=== PATIENT | female | born 1960 | race Caucasian/White ===

== ENCOUNTER 2024-08-29 11:04 | Day surgery (SDC) | payer OTHER ==
[2024-08-29 11:43] LABS: BASO % 0.3 % (0-2.0); EOS % 3.8 % (0-4.5); HEMATOCRIT 38.2 % (32.4-45.2); HEMOGLOBIN 12.7 GM/dL (10.7-15.3); LYMPH % 14.2 % (8-40); MCH 27.5 pg (25.7-33.7); MCHC 33.3 g/dl (32.0-36.0); MEAN CELL VOLUME 82.4 fl (80-96); MEAN PLT VOLUME 8.5 fl (7.5-11.1); MONO % 4.5 % (3.8-10.2); NEUT % 77.2 % (42.8-82.8); PLATELET COUNT 232 10^3/uL (134-434); RBC 4.63 M/mm3 (3.60-5.2); WHITE BLOOD COUNT 8.4 K/mm3 (4.0-10.0)
[2024-08-29 11:58] LABS: CHLORIDE 106 mmol/L (98-107); POTASSIUM 4.1 mmol/L (3.5-5.1); SODIUM 141 mmol/L (136-145)
[2024-08-29 12:02] LABS: CALCIUM 10.1 mg/dL (8.5-10.1)
[2024-08-29 12:03] LABS: ALBUMIN 3.8 g/dl (3.4-5.0); AMYLASE 24 U/L (25-115); ANION GAP 7 mmol/L (4-13); BLOOD UREA NITROGEN 31.5 mg/dL (7-18); CO2 27 mmol/L (21-32); GLUCOSE,RANDOM 95 mg/dL (74-106); MAGNESIUM 1.9 mg/dL (1.8-2.4)
[2024-08-29 12:05] LABS: SGOT/AST 10 U/L (15-37); SGPT/ALT 16 U/L (13-61)
[2024-08-29 12:07] LABS: BILIRUBIN,TOTAL 1.2 mg/dL (0.2-1); TOT PROT 7.5 g/dl (6.4-8.2)
[2024-08-29 12:08] LABS: ALK PHOS 91 U/L (45-117)
[2024-08-29 12:30] LABS: ANISOCYTOSIS 1+; MACROCYTOSIS 0
[2024-08-29] MEDS: PALONOSETRON HCL 0.25 MG/5 ML VIAL IVPUSH ONE (12:55)
[2024-08-29] MEDS: DEXAMETHASONE SODIUM PHOSPHATE 20 MG, DIPHENHYDRAMINE 50 MG in SODIUM CHLORIDE 100 ML IVPB ONE (12:59)
[2024-08-29] MEDS: FOSAPREPITANT DIMEGLUMINE 150 MG in SODIUM CHLORIDE 145 ML IVPB ONE (14:15)
[2024-08-29] MEDS: FAMOTIDINE 20 MG/50 ML IVPB 20 MG/50 ML MG IVPB ONE ×2 (14:50→16:30)
[2024-08-29 14:56] VITALS: RESP 20; TEMP 98.4
[2024-08-29] MEDS: DEXAMETHASONE SODIUM PHOSPHATE IVPB ONE (15:20)
[2024-08-29] MEDS: SODIUM CHLORIDE IVPB ONE ×3 (15:20→18:56)
[2024-08-29] MEDS: PACLITAXEL IVPB ONE (15:52)
[2024-08-29] MEDS: DEXAMETHASONE SOD PHOSPHATE 10 MG/1 ML VIAL IVPUSH ONE (16:30)
[2024-08-29 16:50] LABS: EOS % 0.2 % (0-4.5); HEMATOCRIT 44.1 % (32.4-45.2); HEMOGLOBIN 14.4 GM/dL (10.7-15.3); LYMPH % 29.7 % (8-40); MCHC 32.6 g/dl (32.0-36.0); MEAN CELL VOLUME 82.6 fl (80-96); MEAN PLT VOLUME 7.9 fl (7.5-11.1); MONO % 1.5 % (3.8-10.2); NEUT % 67.6 % (42.8-82.8); PLATELET COUNT 342 10^3/uL (134-434); RBC 5.34 M/mm3 (3.60-5.2); RDW 23.4 % (11.6-15.6); WHITE BLOOD COUNT 8.5 K/mm3 (4.0-10.0)
[2024-08-29 17:10] LABS: PLATELET ESTIMATE INCREASED
[2024-08-29 17:26] LABS: POTASSIUM 4.6 mmol/L (3.5-5.1)
[2024-08-29 17:29] LABS: ALBUMIN 3.3 g/dl (3.4-5.0); BLOOD UREA NITROGEN 30.4 mg/dL (7-18); CALCIUM 9.7 mg/dL (8.5-10.1)
[2024-08-29 17:32] LABS: CREATININE 1.2 mg/dL (0.55-1.3)
[2024-08-29 17:34] LABS: TOT PROT 6.8 g/dl (6.4-8.2)
[2024-08-29 18:07] VITALS: BP 152/65; PULSE 87
[2024-08-29] MEDS: CARBOPLATIN IVPB ONE (18:56)
== END 2024-08-29 16:50 | disposition home or self-care (01) ==
LOC: JONCCHEMO 11:04 → J7W 11:04 → JONCCHEMO 16:50
PROVIDERS: ATTEND Internal Medicine Hematology & Oncology
DX: Z51.11 Encounter for antineoplastic chemotherapy (principal); C54.1 Malignant neoplasm of endometrium; C77.5 Secondary and unspecified malignant neoplasm of intrapelvic lymph nodes
CPT/HCPCS: 36415; 80053; 82150; 82533; 82962; 83690; 83735; 84100; 84439; 84443; 85025; 96367; 96413; J1100; J1453

== ENCOUNTER 2024-08-29 16:46 | Emergency (ER) | payer OTHER ==
[~2024-08-29 16:46] MED LIST: DEXAMETHASONE SOD PHOSPHATE 10 MG/1 ML VIAL IVPUSH ONE; FAMOTIDINE 20 MG/50 ML IVPB 20 MG/50 ML MG IVPB ONE
[2024-08-29 17:02] VITALS: BMI 53.4
[2024-08-29 17:23] LABS: ARTERIAL BLD GAS O2 SATURATION 96.3 % (95-98); ARTERIAL BLOOD GAS BASE EXCESS -4.8 mmol/L (-2-2); ARTERIAL BLOOD GAS PO2 88.8 mmHg (80-100); ARTERIAL BLOOD GAS pH 7.338 (7.350-7.450)
[2024-08-29] MEDS: LACTATED RINGERS SOLUTION 1000 ML INFUS.BAG IV ONE (17:27)
[2024-08-29] MEDS ORDERED: methylPREDNISolone NA SUCC 125 MG/2 ML VIAL ONE ×2 (17:28→17:30)
[2024-08-29] MEDS ORDERED: FAMOTIDINE 10 MG/ML VIAL IVPB ONE (17:29)
[2024-08-29] MEDS: methylPREDNISolone NA SUCC 125 MG/2 ML VIAL IVPUSH ONE (17:35)
[2024-08-29] MEDS: FAMOTIDINE 20 MG/50 ML IVPB 20 MG/50 ML MG IVPB ONE (17:35)
[2024-08-29] MEDS: ACETAMINOPHEN 1000 MG/100 ML BAG IVPB ONE (17:39)
[2024-08-29] MEDS ORDERED: ACETAMINOPHEN INJECTION 100 ML ONE (17:42)
[2024-08-29 22:19] VITALS: BP 128/79; PULSE 83; RESP 18; TEMP 97.5
== END 2024-08-29 22:19 | disposition home or self-care (01) ==
LOC: JER 16:46
DX: R22.0 Localized swelling, mass and lump, head (principal); T45.1X5A Adverse effect of antineoplastic and immunosuppressive drugs, initial encounter
CPT/HCPCS: 36600; 82803; 82962; 93005; 93010; 99284-25; J0131

== ENCOUNTER 2024-09-10 06:30 | Day surgery (SDC) | payer OTHER ==
[2024-09-07 08:56] VITALS: BMI 52.8
[2024-09-10 08:30] LABS: BASO % 0.6 % (0-2.0); EOS % 3.3 % (0-4.5); HEMATOCRIT 38.9 % (32.4-45.2); HEMOGLOBIN 12.8 GM/dL (10.7-15.3); LYMPH % 14.9 % (8-40); MCH 27.6 pg (25.7-33.7); MCHC 32.9 g/dl (32.0-36.0); MEAN CELL VOLUME 83.9 fl (80-96); MEAN PLT VOLUME 7.6 fl (7.5-11.1); MONO % 4.7 % (3.8-10.2); NEUT % 76.5 % (42.8-82.8); PLATELET COUNT 224 10^3/uL (134-434); RBC 4.63 M/mm3 (3.60-5.2); RDW 21.4 % (11.6-15.6); WHITE BLOOD COUNT 8.4 K/mm3 (4.0-10.0)
[2024-09-10 08:36] LABS: PROTHROMBIN TIME (PATIENT) 11.5 SEC (9.7-13.0)
[2024-09-10 09:00] LABS: ANISOCYTOSIS 1+; MACROCYTOSIS 1+
[2024-09-10] MEDS: SODIUM CHLORIDE 500 ML IV SCH (10:40)
[2024-09-10] MEDS ORDERED: FENTANYL CITRATE/PF 50 MCG/ML VIAL ONE (10:47)
[2024-09-10] MEDS ORDERED: MIDAZOLAM HCL 2 MG/2 ML SINGLE DOSE VIAL ONE (10:47)
[2024-09-10] MEDS: MIDAZOLAM HCL 2 MG/2 ML SINGLE DOSE VIAL IVPUSH ONE (10:58)
[2024-09-10] MEDS: FENTANYL CITRATE/PF 50 MCG/ML VIAL IVPUSH ONE (10:58)
[2024-09-10 13:30] VITALS: BP 130/58; PULSE 82; RESP 20; TEMP 98
== END 2024-09-10 13:47 | disposition home or self-care (01) ==
LOC: JRADIR 06:30
PROVIDERS: ATTEND Internal Medicine Hematology & Oncology
DX: Z51.11 Encounter for antineoplastic chemotherapy (principal); C54.1 Malignant neoplasm of endometrium
CPT/HCPCS: 36415; 36561; 85025; 85610

== ENCOUNTER 2024-09-12 10:14 | Day surgery (SDC) | payer OTHER ==
[2024-09-12] MEDS: SODIUM CHLORIDE 250 ML IV ONE (10:45)
[2024-09-12] MEDS: PEMBROLIZUMAB 200 MG in SODIUM CHLORIDE 50 ML IV ONE (11:00)
[2024-09-12 14:48] VITALS: RESP 18; TEMP 97.7
[2024-09-12 15:03] VITALS: BP 126/52; PULSE 54
[2024-09-12] MEDS ORDERED: PORTA CATH FLUSH 10 ML IVPUSH PRN (15:03)
== END 2024-09-12 12:15 | disposition home or self-care (01) ==
LOC: J7W 10:14 → JONCCHEMO 10:14
PROVIDERS: ATTEND Internal Medicine Hematology & Oncology
DX: Z51.11 Encounter for antineoplastic chemotherapy (principal); C54.1 Malignant neoplasm of endometrium
CPT/HCPCS: 96413; J9271

== ENCOUNTER 2024-10-03 10:12 | Day surgery (SDC) | payer OTHER ==
[2024-10-03] MEDS: PEMBROLIZUMAB 200 MG in SODIUM CHLORIDE 50 ML IV ONE (11:18)
[2024-10-03] MEDS: PORTA CATH FLUSH 10 ML IVPUSH PRN (12:00)
[2024-10-03 13:45] VITALS: BP 113/56; PULSE 53; RESP 20; TEMP 98.5
== END 2024-10-03 12:30 | disposition home or self-care (01) ==
LOC: JONCCHEMO 10:12 → J7W 10:17 → JONCCHEMO 12:30
PROVIDERS: ATTEND Internal Medicine Hematology & Oncology
DX: Z51.11 Encounter for antineoplastic chemotherapy (principal); C54.1 Malignant neoplasm of endometrium
CPT/HCPCS: 93005; 93010; 96413; J9271

== ENCOUNTER 2024-10-23 13:43 | Inpatient (IN) | payer OTHER ==
[2024-10-23 15:03] LABS: URINE APPEARANCE Clear; URINE BILIRUBIN Negative (NEGATIVE); URINE COLOR Yellow; URINE GLUCOSE (UA) 1+ (NEGATIVE); URINE KETONE Negative (NEGATIVE); URINE LEUK ESTERASE 1+ (NEGATIVE); URINE NITRITE Negative (NEGATIVE); URINE PROTEIN 1+ (NEGATIVE); URINE UROBILINOGEN 0.2 mg/dL (0.2-1.0)
[2024-10-23 15:05] LABS: HEMATOCRIT 32.3 % (32.4-45.2); HEMOGLOBIN 10.7 GM/dL (10.7-15.3); MCH 27.9 pg (25.7-33.7); MCHC 33.1 g/dl (32.0-36.0); MEAN CELL VOLUME 84.2 fl (80-96); MEAN PLT VOLUME 6.5 fl (7.5-11.1); PLATELET COUNT 402 10^3/uL (134-434); RBC 3.84 M/mm3 (3.60-5.2); RDW 15.2 % (11.6-15.6); WHITE BLOOD COUNT 13.8 K/mm3 (4.0-10.0)
[2024-10-23 15:09] LABS: EPI CELLS 24.8 /uL (0-25.1); HYALINE CASTS 0.54 /uL (0-3.1); URINE BACTERIA 910.9 /uL (0-1359); URINE RBC 40.7 /uL (0-23.9); URINE WBC 362.5 /uL (0-25.8)
[2024-10-23 15:24] LABS: CHLORIDE 102 mmol/L (98-107); POTASSIUM 4.3 mmol/L (3.5-5.1); SODIUM 137 mmol/L (136-145)
[2024-10-23 15:26] LABS: VENOUS BASE EXCESS -6.4 mmol/L (-2-2); VENOUS O2 SATURATION 59.6 % (70-80); VENOUS PH 7.349 (7.310-7.410)
[2024-10-23 15:26] LABS: ANION GAP 15 mmol/L (4-13); BLOOD UREA NITROGEN 109.9 mg/dL (7-18); CALCIUM 9.5 mg/dL (8.5-10.1); CO2 19 mmol/L (21-32); MAGNESIUM 1.8 mg/dL (1.8-2.4)
[2024-10-23 15:27] LABS: GLUCOSE,RANDOM 233 mg/dL (74-106)
[2024-10-23 15:29] LABS: SGOT/AST 10 U/L (15-37); SGPT/ALT 29 U/L (13-61)
[2024-10-23 15:31] LABS: BILIRUBIN,TOTAL 0.4 mg/dL (0.2-1); TOT PROT 7.6 g/dl (6.4-8.2)
[2024-10-23 15:32] LABS: ALK PHOS 196 U/L (45-117)
[2024-10-23 15:38] LABS: CREATININE 9.9 mg/dL (0.55-1.3)
[2024-10-23 16:10] LABS: ANISOCYTOSIS 0; HELMET CELLS 0; HOWELL-JOLLY BODIES 0; MACROCYTOSIS 0; OVALOCYTE 0; ROULEAU 0; SICKELED CELLS 0; TARGET CELLS 0; TEAR DROP CELLS 0; TOXIC GRANULATION 0
[2024-10-23 16:20] LABS: INR 1.16 (0.83-1.09)
[2024-10-23] MEDS: SODIUM CHLORIDE 1,000 ML IV STA (16:29)
[2024-10-23] MEDS: SODIUM CHLORIDE 1,000 ML IV SCH ×2 (18:11→20:02)
[2024-10-23 18:44] LABS: CHLORIDE 106 mmol/L (98-107); POTASSIUM 4.4 mmol/L (3.5-5.1); SODIUM 140 mmol/L (136-145)
[2024-10-23 18:47] LABS: ALBUMIN 2.8 g/dl (3.4-5.0); ANION GAP 14 mmol/L (4-13); CO2 20 mmol/L (21-32); GLUCOSE,RANDOM 138 mg/dL (74-106)
[2024-10-23 18:50] LABS: SGOT/AST 11 U/L (15-37); SGPT/ALT 25 U/L (13-61)
[2024-10-23 18:51] LABS: BILIRUBIN,TOTAL 0.3 mg/dL (0.2-1); TOT PROT 7.1 g/dl (6.4-8.2)
[2024-10-23 18:53] LABS: ALK PHOS 169 U/L (45-117)
[2024-10-23 18:55] LABS: BLOOD UREA NITROGEN 108.7 mg/dL (7-18); CREATININE 9.4 mg/dL (0.55-1.3)
[2024-10-23 21:33] LABS: PHOSPHOROUS 6.6 mg/dL (2.5-4.9)
[2024-10-23] MEDS ORDERED: ACETAMINOPHEN 325 MG TABLET (FP) PO SCH (22:00)
[2024-10-23] MEDS ORDERED: HEPARIN NA (PORCINE) 5,000 UNITS/ML 1ML VIAL ONE (22:06)
[2024-10-23] MEDS ORDERED: PANTOPRAZOLE SODIUM 40 MG/100 ML BAG IVPB ONE (22:06)
[2024-10-23] MEDS: HEPARIN NA (PORCINE) 5,000 UNITS/ML 1ML VIAL SQ SCH (22:22)
[2024-10-23] MEDS: PANTOPRAZOLE 40 MG TABLET PO SCH (22:22)
[2024-10-23] MEDS ORDERED: PANTOPRAZOLE 40 MG TABLET PO ONE (22:23)
[2024-10-24] MEDS: SODIUM CHLORIDE 1,000 ML IV SCH ×2 (00:45→16:48)
[2024-10-24] MEDS: INSULIN ASPART SLIDING SCALE (NOVOLOG) 1 VIAL SQ SCH (06:04)
[2024-10-24 07:51] LABS: HEMATOCRIT 29.6 % (32.4-45.2); HEMOGLOBIN 9.5 GM/dL (10.7-15.3); MCH 27.8 pg (25.7-33.7); MCHC 32.2 g/dl (32.0-36.0); MEAN CELL VOLUME 86.3 fl (80-96); MEAN PLT VOLUME 6.7 fl (7.5-11.1); PLATELET COUNT 338 10^3/uL (134-434); RBC 3.43 M/mm3 (3.60-5.2); RDW 15.5 % (11.6-15.6); WHITE BLOOD COUNT 13.6 K/mm3 (4.0-10.0)
[2024-10-24 07:58] LABS: CHLORIDE 106 mmol/L (98-107); POTASSIUM 4.6 mmol/L (3.5-5.1); SODIUM 139 mmol/L (136-145)
[2024-10-24 08:13] LABS: CALCIUM 9.1 mg/dL (8.5-10.1)
[2024-10-24 08:14] LABS: ALBUMIN 2.8 g/dl (3.4-5.0); ANION GAP 13 mmol/L (4-13); BLOOD UREA NITROGEN 101.8 mg/dL (7-18); CO2 19 mmol/L (21-32); GLUCOSE,RANDOM 153 mg/dL (74-106); MAGNESIUM 2.1 mg/dL (1.8-2.4)
[2024-10-24 08:16] LABS: PHOSPHOROUS 8.1 mg/dL (2.5-4.9)
[2024-10-24 08:17] LABS: SGOT/AST 8 U/L (15-37); SGPT/ALT 23 U/L (13-61)
[2024-10-24 08:18] LABS: BILIRUBIN,TOTAL 0.4 mg/dL (0.2-1); TOT PROT 6.8 g/dl (6.4-8.2)
[2024-10-24 08:19] LABS: ALK PHOS 152 U/L (45-117)
[2024-10-24 08:24] LABS: CREATININE 8.8 mg/dL (0.55-1.3)
[2024-10-24] MEDS: SEVELAMER CARBONATE 800 MG TAB (FP) PO SCH (09:19)
[2024-10-24] MEDS: FERROUS SO4 325 MG TABLET (FP) PO SCH (09:19)
[2024-10-24 09:42] LABS: ANISOCYTOSIS 0; HELMET CELLS 0; HOWELL-JOLLY BODIES 0; MACROCYTOSIS 0; OVALOCYTE 0; ROULEAU 0; SICKELED CELLS 0; TARGET CELLS 0; TEAR DROP CELLS 0; TOXIC GRANULATION 0
[2024-10-24 14:25] LABS: PH,URINE 5.5 (5.0-8.0); URINE APPEARANCE CLEAR; URINE BILIRUBIN NEGATIVE (NEGATIVE); URINE COLOR YELLOW; URINE GLUCOSE (UA) NEGATIVE (NEGATIVE); URINE KETONE NEGATIVE (NEGATIVE)
[2024-10-24 14:26] LABS: URINE LEUK ESTERASE NEGATIVE (NEGATIVE); URINE NITRITE NEGATIVE (NEGATIVE); URINE PROTEIN 1+ (NEGATIVE); URINE UROBILINOGEN 0.2 mg/dL (0.2-1.0)
[2024-10-24 14:28] LABS: EPI CELLS 31 /uL (0-25.1); HYALINE CASTS 0 /uL (0-3.1); URINE BACTERIA 1402 /uL (0-1359); URINE WBC 282 /uL (0-25.8)
[2024-10-24 14:31] LABS: URINE RBC 19.8 /uL (0-23.9)
[2024-10-25 00:56] LABS: HIV INTERPRETATION NEGATIVE (NEGATIVE)
[2024-10-25 07:44] LABS: HEMATOCRIT 28.9 % (32.4-45.2); HEMOGLOBIN 9.2 GM/dL (10.7-15.3); MCH 27.6 pg (25.7-33.7); MCHC 31.8 g/dl (32.0-36.0); MEAN CELL VOLUME 86.8 fl (80-96); MEAN PLT VOLUME 6.3 fl (7.5-11.1); PLATELET COUNT 292 10^3/uL (134-434); RBC 3.33 M/mm3 (3.60-5.2); RDW 15.8 % (11.6-15.6); WHITE BLOOD COUNT 11.7 K/mm3 (4.0-10.0)
[2024-10-25 08:05] LABS: CHLORIDE 108 mmol/L (98-107); POTASSIUM 4.4 mmol/L (3.5-5.1); SODIUM 141 mmol/L (136-145)
[2024-10-25 08:23] LABS: CALCIUM 9.1 mg/dL (8.5-10.1)
[2024-10-25 08:24] LABS: ANION GAP 13 mmol/L (4-13); CO2 20 mmol/L (21-32); GLUCOSE,RANDOM 99 mg/dL (74-106)
[2024-10-25 08:25] LABS: BLOOD UREA NITROGEN 105.9 mg/dL (7-18)
[2024-10-25 08:27] LABS: CREATININE 7.4 mg/dL (0.55-1.3); PHOSPHOROUS 6.6 mg/dL (2.5-4.9)
[2024-10-25 12:59] VITALS: BMI 49.8
[2024-10-25] MEDS: LACTATED RINGERS SOLUTION 1,000 ML/1,000 ML INFUS.BAG IV SCH (17:31)
[2024-10-25] MEDS: SODIUM CHLORIDE 0.9% 500 ML INFUS.BAG IV ONE (17:45)
[2024-10-25] MEDS: SODIUM CHLORIDE 1,000 ML IV SCH (17:45)
[2024-10-25 22:10] LABS: ANTIGLOMERULAR BASEMENT MEN.AB <0.2 units (0.0-0.9)
[2024-10-26 08:26] LABS: HEMATOCRIT 28.8 % (32.4-45.2); HEMOGLOBIN 9.3 GM/dL (10.7-15.3); MCHC 32.3 g/dl (32.0-36.0); MEAN CELL VOLUME 86.7 fl (80-96); MEAN PLT VOLUME 6.7 fl (7.5-11.1); PLATELET COUNT 247 10^3/uL (134-434); RBC 3.32 M/mm3 (3.60-5.2); RDW 16.1 % (11.6-15.6); WHITE BLOOD COUNT 9.7 K/mm3 (4.0-10.0)
[2024-10-26 08:50] LABS: POTASSIUM 4.1 mmol/L (3.5-5.1)
[2024-10-26 09:04] LABS: BLOOD UREA NITROGEN 90.1 mg/dL (7-18)
[2024-10-26 09:07] LABS: CALCIUM 8.8 mg/dL (8.5-10.1)
[2024-10-26 09:08] LABS: CREATININE 5.9 mg/dL (0.55-1.3); MAGNESIUM 1.7 mg/dL (1.8-2.4); PHOSPHOROUS 5.8 mg/dL (2.5-4.9)
[2024-10-26] MEDS: SODIUM CHLORIDE 0.9% 500 ML INFUS.BAG IV ONE (10:26)
[2024-10-26] MEDS ORDERED: SODIUM CHLORIDE 1,000 ML IV ONE (11:00)
[2024-10-26] MEDS: MAGNESIUM SULFATE IN WATER 2 GM/50 ML IVPB IVPB ONE (11:02)
[2024-10-26 15:08] LABS: C-ANCA <1:20 titer (Neg:<1:20)
[2024-10-26] MEDS: ACETAMINOPHEN 325 MG TABLET (FP) PO PRN (16:40)
[2024-10-27 06:54] LABS: HEMATOCRIT 28.3 % (32.4-45.2); HEMOGLOBIN 9.2 GM/dL (10.7-15.3); MCHC 32.4 g/dl (32.0-36.0); MEAN CELL VOLUME 86.6 fl (80-96); MEAN PLT VOLUME 6.4 fl (7.5-11.1); PLATELET COUNT 207 10^3/uL (134-434); RBC 3.27 M/mm3 (3.60-5.2); RDW 15.3 % (11.6-15.6)
[2024-10-27 07:18] LABS: BLOOD UREA NITROGEN 86.2 mg/dL (7-18)
[2024-10-27 07:20] LABS: MAGNESIUM 1.8 mg/dL (1.8-2.4)
[2024-10-27 07:21] LABS: CREATININE 5.3 mg/dL (0.55-1.3)
[2024-10-28 07:24] LABS: BASO % 0.2 % (0-2.0); EOS % 2.6 % (0-4.5); HEMATOCRIT 27.2 % (32.4-45.2); HEMOGLOBIN 8.7 GM/dL (10.7-15.3); LYMPH % 5.9 % (8-40); MCH 27.7 pg (25.7-33.7); MCHC 31.8 g/dl (32.0-36.0); MEAN PLT VOLUME 6.8 fl (7.5-11.1); MONO % 5.2 % (3.8-10.2); NEUT % 86.1 % (42.8-82.8); PLATELET COUNT 186 10^3/uL (134-434); RBC 3.13 M/mm3 (3.60-5.2); RDW 15.6 % (11.6-15.6); WHITE BLOOD COUNT 13.8 K/mm3 (4.0-10.0)
[2024-10-28 07:53] LABS: POTASSIUM 3.8 mmol/L (3.5-5.1)
[2024-10-28 07:55] LABS: CALCIUM 9.1 mg/dL (8.5-10.1)
[2024-10-28 08:00] LABS: CREATININE 5.4 mg/dL (0.55-1.3)
[2024-10-29 06:53] LABS: BASO % 0.7 % (0-2.0); EOS % 2.8 % (0-4.5); HEMATOCRIT 25.9 % (32.4-45.2); HEMOGLOBIN 8.3 GM/dL (10.7-15.3); LYMPH % 6.7 % (8-40); MCHC 32.2 g/dl (32.0-36.0); MONO % 5.4 % (3.8-10.2); NEUT % 84.4 % (42.8-82.8); PLATELET COUNT 174 10^3/uL (134-434); RBC 2.98 M/mm3 (3.60-5.2); RDW 15.5 % (11.6-15.6); WHITE BLOOD COUNT 12.2 K/mm3 (4.0-10.0)
[2024-10-29 07:09] LABS: POTASSIUM 3.6 mmol/L (3.5-5.1)
[2024-10-29 07:11] LABS: CALCIUM 9.1 mg/dL (8.5-10.1)
[2024-10-29 07:12] LABS: BLOOD UREA NITROGEN 70.2 mg/dL (7-18)
[2024-10-29 07:15] LABS: CREATININE 5.4 mg/dL (0.55-1.3)
[2024-10-29] MEDS: LACTATED RINGERS SOLUTION 1,000 ML/1,000 ML INFUS.BAG IV SCH (17:28)
[2024-10-29] MEDS: SEVELAMER CARBONATE 800 MG TAB (FP) PO SCH (18:41)
[2024-10-29] MEDS: ACETAMINOPHEN 325 MG TABLET (FP) PO PRN (18:46)
[2024-10-29] MEDS: HEPARIN NA (PORCINE) 5,000 UNITS/ML 1ML VIAL SQ SCH (21:50)
[2024-10-29] MEDS: PANTOPRAZOLE 40 MG TABLET PO SCH (21:50)
[2024-10-30] MEDS: INSULIN ASPART SLIDING SCALE (NOVOLOG) 1 VIAL SQ SCH (06:06)
[2024-10-30 09:39] LABS: BASO % 0.2 % (0-2.0); EOS % 2.8 % (0-4.5); HEMATOCRIT 25.8 % (32.4-45.2); HEMOGLOBIN 8.5 GM/dL (10.7-15.3); LYMPH % 7.4 % (8-40); MCH 28.4 pg (25.7-33.7); MCHC 32.9 g/dl (32.0-36.0); MEAN CELL VOLUME 86.3 fl (80-96); MEAN PLT VOLUME 7.3 fl (7.5-11.1); MONO % 6.3 % (3.8-10.2); NEUT % 83.3 % (42.8-82.8); PLATELET COUNT 163 10^3/uL (134-434); RBC 2.99 M/mm3 (3.60-5.2); RDW 15.9 % (11.6-15.6); WHITE BLOOD COUNT 9.5 K/mm3 (4.0-10.0)
[2024-10-30 09:54] LABS: POTASSIUM 4.1 mmol/L (3.5-5.1)
[2024-10-30] MEDS: FERROUS SO4 325 MG TABLET (FP) PO SCH (10:00)
[2024-10-30 10:09] LABS: ALBUMIN 2.8 g/dl (3.4-5.0); BLOOD UREA NITROGEN 62.6 mg/dL (7-18); CALCIUM 9.1 mg/dL (8.5-10.1); MAGNESIUM 1.8 mg/dL (1.8-2.4)
[2024-10-30 10:12] LABS: CREATININE 5.8 mg/dL (0.55-1.3); PHOSPHOROUS 4.7 mg/dL (2.5-4.9)
[2024-10-30 10:13] LABS: TOT PROT 6.4 g/dl (6.4-8.2)
[2024-10-30 13:40] LABS: URINE APPEARANCE CLOUDY; URINE BILIRUBIN NEGATIVE (NEGATIVE); URINE COLOR YELLOW; URINE GLUCOSE (UA) TRACE (NEGATIVE); URINE KETONE NEGATIVE (NEGATIVE); URINE LEUK ESTERASE 3+ (NEGATIVE); URINE NITRITE NEGATIVE (NEGATIVE); URINE PROTEIN 1+ (NEGATIVE); URINE UROBILINOGEN 0.2 mg/dL (0.2-1.0)
[2024-10-30 14:00] LABS: EPI CELLS 159.6 /uL (0-25.1); HYALINE CASTS 2.19 /uL (0-3.1); URINE BACTERIA 7692.2 /uL (0-1359); URINE RBC 29.6 /uL (0-23.9); URINE WBC 372.1 /uL (0-25.8)
[2024-10-30] MEDS ORDERED: SODIUM CHLORIDE 0.45% 1,000 ML IV SCH (16:15)
[2024-10-30] MEDS: SODIUM CHLORIDE 1,000 ML IV SCH (18:27)
[2024-10-31 07:44] LABS: POTASSIUM 3.7 mmol/L (3.5-5.1)
[2024-10-31 07:51] LABS: CALCIUM 8.9 mg/dL (8.5-10.1)
[2024-10-31 07:52] LABS: MAGNESIUM 1.7 mg/dL (1.8-2.4)
[2024-10-31 07:53] LABS: ALBUMIN 2.6 g/dl (3.4-5.0)
[2024-10-31 07:55] LABS: BILIRUBIN,TOTAL 0.8 mg/dL (0.2-1); TOT PROT 6.2 g/dl (6.4-8.2)
[2024-10-31 07:57] LABS: CREATININE 5.7 mg/dL (0.55-1.3)
[2024-10-31 07:59] LABS: BASO % 0.3 % (0-2.0); EOS % 2.7 % (0-4.5); HEMATOCRIT 25.1 % (32.4-45.2); HEMOGLOBIN 8.2 GM/dL (10.7-15.3); LYMPH % 7.7 % (8-40); MCH 28.6 pg (25.7-33.7); MCHC 32.9 g/dl (32.0-36.0); MEAN CELL VOLUME 86.8 fl (80-96); MEAN PLT VOLUME 7.3 fl (7.5-11.1); MONO % 5.9 % (3.8-10.2); NEUT % 83.4 % (42.8-82.8); PLATELET COUNT 160 10^3/uL (134-434); RBC 2.89 M/mm3 (3.60-5.2); RDW 15.9 % (11.6-15.6); WHITE BLOOD COUNT 10.3 K/mm3 (4.0-10.0)
[2024-10-31] MEDS: SODIUM CHLORIDE 1,000 ML IV SCH (09:43)
[2024-10-31] MEDS: CEFTRIAXONE 1 G/50 ML PREMIX 50 ML IVPB ONE (13:44)
[2024-10-31] MEDS: PIPERACILLIN/TAZOB 2.25 GM 2.25 GM/50 ML BAG IVPB SCH (13:48)
[2024-11-01 09:18] LABS: BASO % 0.2 % (0-2.0); EOS % 2.5 % (0-4.5); HEMOGLOBIN 9.3 GM/dL (10.7-15.3); LYMPH % 7.1 % (8-40); MCH 28.8 pg (25.7-33.7); MCHC 33.1 g/dl (32.0-36.0); MEAN CELL VOLUME 86.8 fl (80-96); MEAN PLT VOLUME 7.5 fl (7.5-11.1); MONO % 6.5 % (3.8-10.2); NEUT % 83.7 % (42.8-82.8); PLATELET COUNT 188 10^3/uL (134-434); RBC 3.23 M/mm3 (3.60-5.2); RDW 15.9 % (11.6-15.6); WHITE BLOOD COUNT 10.7 K/mm3 (4.0-10.0)
[2024-11-01 09:32] LABS: ALBUMIN 2.8 g/dl (3.4-5.0); BLOOD UREA NITROGEN 61.4 mg/dL (7-18); CALCIUM 9.3 mg/dL (8.5-10.1); MAGNESIUM 1.6 mg/dL (1.8-2.4)
[2024-11-01 09:35] LABS: CREATININE 5.9 mg/dL (0.55-1.3)
[2024-11-01 09:37] LABS: BILIRUBIN,TOTAL 0.7 mg/dL (0.2-1)
[2024-11-01] MEDS: SODIUM CHLORIDE 1,000 ML IV SCH (15:37)
[2024-11-01] MEDS: CEFTRIAXONE 1 G/50 ML PREMIX 50 ML IVPB SCH (16:37)
[2024-11-01 18:54] VITALS: RESP 18
[2024-11-02 08:40] LABS: BASO % 0.4 % (0-2.0); EOS % 2.4 % (0-4.5); HEMATOCRIT 26.7 % (32.4-45.2); HEMOGLOBIN 8.8 GM/dL (10.7-15.3); MCH 28.6 pg (25.7-33.7); MCHC 32.9 g/dl (32.0-36.0); MEAN CELL VOLUME 87.1 fl (80-96); MEAN PLT VOLUME 7.5 fl (7.5-11.1); MONO % 5.6 % (3.8-10.2); NEUT % 83.6 % (42.8-82.8); PLATELET COUNT 167 10^3/uL (134-434); RBC 3.06 M/mm3 (3.60-5.2); RDW 16.3 % (11.6-15.6); WHITE BLOOD COUNT 8.6 K/mm3 (4.0-10.0)
[2024-11-02 08:57] LABS: POTASSIUM 3.5 mmol/L (3.5-5.1)
[2024-11-02 09:05] LABS: ALBUMIN 2.8 g/dl (3.4-5.0); BLOOD UREA NITROGEN 58.5 mg/dL (7-18); CALCIUM 9.1 mg/dL (8.5-10.1); CREATININE 5.8 mg/dL (0.55-1.3)
[2024-11-02 09:06] LABS: MAGNESIUM 1.5 mg/dL (1.8-2.4)
[2024-11-02 09:07] LABS: BILIRUBIN,TOTAL 0.5 mg/dL (0.2-1); TOT PROT 6.6 g/dl (6.4-8.2)
[2024-11-02 15:25] VITALS: BP 124/61; PULSE 74; TEMP 98.1
[2024-11-02] MEDS ORDERED: PORTA CATH FLUSH 10 ML IVPUSH PRN (16:51)
== END 2024-11-02 18:27 | disposition home or self-care (01) | DRG 683 ==
LOC: JER 13:43 → JERBED 19:53 → J4W 22:59 → OBSVTOIN 10-24 11:07 → J7W 10-29 16:30
PROVIDERS: ADMIT Internal Medicine
DX: N17.9 Acute kidney failure, unspecified (principal); N39.0 Urinary tract infection, site not specified; Z68.43 Body mass index [BMI] 50.0-59.9, adult; T45.1X5A Adverse effect of antineoplastic and immunosuppressive drugs, initial encounter; R73.03 Prediabetes; C54.1 Malignant neoplasm of endometrium; E66.9 Obesity, unspecified; E86.0 Dehydration; D64.9 Anemia, unspecified; Y92.89 Other specified places as the place of occurrence of the external cause
CPT/HCPCS: 36415; 76775-TC; 80048; 80053; 81003; 82436; 82550; 82570; 82803; 82962; 83036; 83516; 83520; 83735; 84100; 84133; 84155; 84165; 84300; 85025; 85027; 85610; 85730; 86038; 86160; 86225; 86256; 86803; 86850; 86900; 86901; 87086; 87186; 87389; 93005; 93010; 99285-25; G0378; J1644